=== PATIENT | female | born 1940 | race Hispanic/Latino ===

== ENCOUNTER 2017-09-17 14:21 | Emergency (ER) | payer MEDICARE, OTHER ==
[2017-09-17] MEDS ORDERED: Benzonatate 100 MG CAP ONE (14:46)
--- NOTE | 2017-09-17 15:51 | RAD ---
PA AND LATERAL VIEWS CHEST: HISTORY: Cough. FINDINGS: The heart size is normal. The lungs are expanded without focal areas of consolidation, pneumothorax, or pleural effusions. There are degenerative changes of the spine. IMPRESSION: No radiographic evidence of acute cardiopulmonary process. POS: [facility]
== END 2017-09-17 15:21 | disposition home or self-care (01) ==
LOC: SCSER 14:21
DX: J06.9 Acute upper respiratory infection, unspecified (principal); E03.9 Hypothyroidism, unspecified; K21.9 Gastro-esophageal reflux disease without esophagitis; I10 Essential (primary) hypertension; I34.1 Nonrheumatic mitral (valve) prolapse; F41.9 Anxiety disorder, unspecified; Z79.82 Long term (current) use of aspirin; Z79.899 Other long term (current) drug therapy
CPT/HCPCS: 71020

== ENCOUNTER 2018-05-04 08:47 | Outpatient (CLI) | payer MEDICARE, OTHER | END 2018-05-04 08:48 | disposition home or self-care (01) | LOC: BICRAD 08:47 | PROVIDERS: ATTEND Internal Medicine Rheumatology | DX: M25.552 Pain in left hip (principal); M16.12 Unilateral primary osteoarthritis, left hip ==

== ENCOUNTER 2018-07-26 10:21 | Outpatient (CLI) | payer MEDICARE, OTHER ==
--- NOTE | 2018-07-26 12:58 | MRI ---
MRI RIGHT SHOULDER: 07/26/2018 PROVIDED CLINICAL HISTORY: Right shoulder pain, status post injury. FINDINGS: Evaluation is limited by patient motion. There is full-thickness partial retracted tearing involving the anterior supraspinatus tendon, distal ly. There is retraction to about the level of the acromion. Partial-thickness under-surface tearing involving the distal fibers of infraspinatus cannot be excluded. Partial-thickness interstitial tea ring involving the cranial fibers of the subscapularis is suspected. The teres minor appears intact. There is medial subluxation of the longhead biceps tendon, suggesting bicipital sling injury. No f rank dislocation. There is a small glenohumeral joint effusion. The glenoid labrum and glenohumeral articular cartilag e are not optimally evaluated on the basis of this examination. Susceptibility artifact is seen about the shoulder, suggesting prior surgical change. Rotator cuff m uscular volume appears preserved. Acromioclavicular joint osteoarthrosis is demonstrated, with no si gnificant mass effect on the subjacent supraspinatus apparent. There is greater than physiologic subacromial subdeltoid bursal fluid. IMPRESSION: 1. Limited study due to patient motion. Full-thickness, partial-width tear of the supraspinatus ten don with retraction. 2. Partial-thickness tears of the infraspinatus and subscapularis are suspected. 3. Medial subluxation of the longhead biceps tendon may reflect bicipital sling injury. 4. Acromioclavicular joint osteoarthrosis. POS: [facility]
== END 2018-07-26 10:22 | disposition home or self-care (01) ==
LOC: TBSIIMAG 10:21
PROVIDERS: ATTEND Orthopaedic Surgery
DX: M25.511 Pain in right shoulder (principal); M75.121 Complete rotator cuff tear or rupture of right shoulder, not specified as traumatic; M19.011 Primary osteoarthritis, right shoulder; S43.001A Unspecified subluxation of right shoulder joint, initial encounter

== ENCOUNTER 2018-07-28 09:40 | Emergency (ER) | payer MEDICARE, OTHER ==
--- NOTE | 2018-07-28 11:28 | RAD ---
RIGHT SHOULDER THREE VIEWS: Indication: Pain, fall. FINDINGS: There is osteoarthritis without fracture or dislocation. IMPRESSION: No acute osseous abnormality right shoulder. POS: [facility]
[2018-07-28] MEDS ORDERED: HYDROcodone/Acetaminophen 5/325 mg Tablet ONE (11:51)
--- NOTE | 2018-07-28 12:19 | RAD ---
2 VIEWS RIGHT FOREARM: Date: 07/28/18 INDICATION: History of fall with right forearm pain. COMPARISON: None. FINDINGS/IMPRESSION: No acute fracture or subluxation is evident. Radiocapitellar alignment appears within normal limits. Soft tissues appear within normal limits. POS: [facility]
--- NOTE | 2018-07-28 12:19 | RAD ---
3 VIEWS RIGHT WRIST: Date: 07/28/18 INDICATION: Right wrist pain after fall. COMPARISON: None. FINDINGS: There is diffuse osteopenia. No definite acute fracture or subluxation is evident. Carpal alignment a ppears within normal limits. IMPRESSION: No acute osseous abnormality. POS: [facility]
== END 2018-07-28 12:50 | disposition home or self-care (01) ==
LOC: ERS 09:40
DX: S43.401A Unspecified sprain of right shoulder joint, initial encounter (principal); I34.1 Nonrheumatic mitral (valve) prolapse; F41.9 Anxiety disorder, unspecified; I10 Essential (primary) hypertension; K21.9 Gastro-esophageal reflux disease without esophagitis; E03.9 Hypothyroidism, unspecified; Z79.899 Other long term (current) drug therapy; W19.XXXA Unspecified fall, initial encounter

== ENCOUNTER 2018-08-21 14:14 | Outpatient (CLI) | payer MEDICARE, OTHER ==
[2018-08-21 15:21] LABS: #Eosinphils 0.3 thou/uL (0.0-0.7); #Lymphocytes 2.1 thou/uL (1.20-3.40); #Monocytes 0.6 thou/uL (0.11-0.59); #Neutrophils 2.9 thou/uL (1.40-6.50); %Basophils 0.7 % (0.0-1.0); %Eosinophils 4.5 % (0.0-10.0); %Lymphocytes 35.4 % (21.0-51.0); %Monocytes 9.6 % (0.0-10.0); %Neutrophils 49.8 % (42.0-75.0); Hemoglobin 11.9 g/dL (12.0-16.0); Mean Corpuscular HGB CONC 33.5 g/dL (32.0-36.0); Mean Corpuscular Volume 95.5 fL (78.0-98.0); Mean Platelet Volume 10.6 fL (7.4-10.4); Platelet Count 131 thou/uL (130-400); RBC Distribution Width 12.1 % (11.5-14.5); Red Blood Cell (RBC) Count 3.73 mill/uL (4.20-5.40); White Blood Cell (WBC) Count 5.8 thou/uL (4.8-10.8)
[2018-08-21 15:35] LABS: Anion Gap 10 mmol/L (10-20); BUN (Urea Nitrogen) 20 mg/dL (9.8-20.1); Calc. Creatinine Clearance 0 mL/min (70-130); Calcium 9.9 mg/dL (7.8-10.44); Carbon Dioxide 29 mmol/L (23-31); Chloride 108 mmol/L (98-107); Estimated GFR-MDRD 84; Glucose 119 mg/dL (83-110); Sodium 143 mmol/L (136-145)
--- NOTE | 2018-08-23 21:47 | EKG ---
Test Reason : Blood Pressure : / mmHG Vent. Rate : 065 BPM Atrial Rate : 065 BPM P-R Int : 164 ms QRS Dur : 084 ms QT Int : 408 ms P-R-T Axes : 044 046 044 degrees QTc Int : 424 ms Normal sinus rhythm Normal ECG When compared with ECG of 17-NOV-2015 13:47, No significant change was found Confirmed by Suzy LAKHANI ([id number]) on 08/23/2018 9:47:07 PM Referred By: PRERNA Confirmed By:Suzy LAKHANI
== END 2018-08-21 14:15 | disposition home or self-care (01) ==
LOC: LABBT 14:14
PROVIDERS: ATTEND Orthopaedic Surgery
DX: Z01.818 Encounter for other preprocedural examination (principal); M75.101 Unspecified rotator cuff tear or rupture of right shoulder, not specified as traumatic
CPT/HCPCS: 80048; 85025; 93005; 93010

== ENCOUNTER 2018-08-25 08:55 | Day surgery (SDC) | payer MEDICARE, OTHER ==
[2018-08-21 14:27] VITALS: BMI 26.9
[2018-08-25] MEDS ORDERED: CEFAZOLIN 2 GM/50 ML BAG ONE (09:46)
[2018-08-25] MEDS ORDERED: Midazolam HCl 2 mg/2 ml Vial ONE (10:08)
[2018-08-25] MEDS ORDERED: Fentanyl 100 MCG/2 ML VIAL ONE (10:09)
[2018-08-25] MEDS ORDERED: Promethazine HCl 25 MG/ML VIAL IM PRN (10:59)
[2018-08-25] MEDS ORDERED: Ropivacaine 0.2% 550 ML 550 ML NERVE BLCK SCH (10:59)
[2018-08-25] MEDS ORDERED: traMADol HCl 50 MG TAB PO PRN ×2 (10:59)
[2018-08-25] MEDS ORDERED: HYDROcodone/Acetaminophen 5/325 mg Tablet PO PRN ×2 (10:59)
[2018-08-25] MEDS ORDERED: Ondansetron PF 4 MG/2 ML Vial IVP PRN (10:59)
[2018-08-25] MEDS ORDERED: Zolpidem Tartrate 5 MG TAB PO PRN (10:59)
[2018-08-25] MEDS ORDERED: Fentanyl 100 MCG/2 ML VIAL IV PRN (11:00)
[2018-08-25] MEDS ORDERED: Ropivacaine 0.2% HCl/PF (40 MG/20 ML VIAL) ONE (12:52)
[2018-08-25] MEDS ORDERED: Ropivacaine 0.5% HCl/PF (150 MG/30 ML VIAL) ONE (12:52)
[2018-08-25] MEDS ORDERED: PROPOFOL 200 MG/20 ML VIAL ONE (13:02)
[2018-08-25] MEDS ORDERED: PHENYLEPHRINE-NS 100 MCG/ML 10 ML SYRINGE ONE (13:02)
[2018-08-25] MEDS ORDERED: Ondansetron PF 4 MG/2 ML Vial ONE (13:02)
[2018-08-25] MEDS ORDERED: ePHEDrine/0.9% NaCl/PF SYRINGE 50 mg/10 ml ONE (13:02)
[2018-08-25] MEDS ORDERED: Lidocaine 1% PF 5 ML VIAL ONE (13:02)
[2018-08-25] MEDS ORDERED: Glycopyrrolate 0.2 MG/ML 5 ML SYRINGE ONE (13:02)
--- NOTE | 2018-08-25 20:18 | OP ---
DATE OF PROCEDURE: 08/25/2018 PREOPERATIVE DIAGNOSIS: Rotator cuff tear and biceps dislocation, right shoulder. POSTOPERATIVE DIAGNOSIS: Rotator cuff tear and biceps dislocation, right shoulder with leading edge of subscapularis tear. METALLOGRAPHIC TECHNICIAN: James. BLOOD LOSS: Minimal. SPECIMEN: None. DRAINS: None. COMPLICATION: None. TITLE OF PROCEDURE: Right shoulder arthroscopic biceps tenotomy and arthroscopic rotator cuff repair with arthroscopic decompression. DESCRIPTION OF PROCEDURE: The patient was taken to the operating room, where general anesthesia was induced. The patient was placed in left lateral decubitus position. She received Ancef preoperatively. Right arm was placed in traction, prepped and draped in usual sterile fashion. The scope was placed in the glenohumeral joint. The biceps tendon was unstable. Due to the sling being ruptured, I tagged the biceps and transected superior glenoid tubercle. The biceps only settled down into the groove, so I did not feel tenodesis was required. She has very soft bone. I am concerned about possible iatrogenic fracture, so I left this as a tenotomy. Rotator cuff tear was mobilized and freshened. It was fairly a large tear. You could see sutures from a previous repair. It ruptured the same place. I freshened up the greater tuberosity with a teofilo. I performed an anterior and inferior acromioplasty with a teofilo. Three Corkscrew suture anchors were deployed, and sutures were passed through the rotator cuff and tied in a very good approximation to the bleeding cancellous bone. Shoulders were then drained. The portals were closed using nylon suture. Sterile dressings were applied. Job ID: [id number]
== END 2018-08-25 15:40 | disposition home or self-care (01) ==
LOC: SDC 08:55
PROVIDERS: ATTEND Orthopaedic Surgery
PROC: 0LM14ZZ Reattachment of Right Shoulder Tendon, Percutaneous Endoscopic Approach (ICD-10-PCS; principal; 2018-08-25)
PROC: 0RHJ44Z Insertion of Internal Fixation Device into Right Shoulder Joint, Percutaneous Endoscopic Approach (ICD-10-PCS; 2018-08-25)
PROC: 0RNJ4ZZ Release Right Shoulder Joint, Percutaneous Endoscopic Approach (ICD-10-PCS; 2018-08-25)
DX: M75.101 Unspecified rotator cuff tear or rupture of right shoulder, not specified as traumatic (principal); S43.084A Other dislocation of right shoulder joint, initial encounter; E03.9 Hypothyroidism, unspecified; K21.9 Gastro-esophageal reflux disease without esophagitis; M81.0 Age-related osteoporosis without current pathological fracture; Z79.82 Long term (current) use of aspirin; Z79.899 Other long term (current) drug therapy; Z88.5 Allergy status to narcotic agent; Z88.6 Allergy status to analgesic agent; Z88.8 Allergy status to other drugs, medicaments and biological substances; Z98.890 Other specified postprocedural states
CPT/HCPCS: 29826; 29827; 97139; A4306; G8984; G8985; G8986; J2001; J2250; J2405; J2704; J2795; J3010

== ENCOUNTER 2018-11-21 23:51 | Emergency (ER) | payer MEDICARE, OTHER ==
[2018-11-21] MEDS ORDERED: methylPREDNISolone Sod Succ/PF 125 MG/2 ML VIAL ONE (23:57)
[2018-11-21] MEDS ORDERED: Famotidine/PF 20 mg/2ml Vial ONE (23:57)
[2018-11-21] MEDS ORDERED: diphenhydrAMINE 50 MG/ML VIAL ONE (23:57)
[2018-11-22 00:17] LABS: #Basophils 0.1 thou/uL (0.0-0.2); #Eosinphils 0.3 thou/uL (0.0-0.7); #Lymphocytes 4.9 thou/uL (1.20-3.40); #Monocytes 0.9 thou/uL (0.11-0.59); #Neutrophils 4.2 thou/uL (1.40-6.50); %Basophils 0.6 % (0.0-1.0); %Eosinophils 2.6 % (0.0-10.0); %Lymphocytes 47.4 % (21.0-51.0); %Monocytes 8.7 % (0.0-10.0); %Neutrophils 40.7 % (42.0-75.0); Hemoglobin 14.1 g/dL (12.0-16.0); Mean Corpuscular HGB CONC 32.6 g/dL (32.0-36.0); Mean Corpuscular Hemoglobin 31.6 pg (27.0-31.0); Mean Corpuscular Volume 97.1 fL (78.0-98.0); Mean Platelet Volume 10.5 fL (7.4-10.4); Platelet Count 213 thou/uL (130-400); RBC Distribution Width 12.6 % (11.5-14.5); Red Blood Cell (RBC) Count 4.45 mill/uL (4.20-5.40); White Blood Cell (WBC) Count 10.4 thou/uL (4.8-10.8)
[2018-11-22 00:40] LABS: ALT (SGPT) 13 U/L (8-55); AST (SGOT) 19 U/L (5-34); Albumin 4.6 g/dL (3.4-4.8); Alkaline Phosphatase 99 U/L (40-150); Anion Gap 17 mmol/L (10-20); BUN (Urea Nitrogen) 22 mg/dL (9.8-20.1); Bilirubin, Total 0.4 mg/dL (0.2-1.2); CK (CPK) 65 U/L (29-168); Calc. Creatinine Clearance 0 mL/min (70-130); Carbon Dioxide 23 mmol/L (23-31); Chloride 103 mmol/L (98-107); Estimated GFR-MDRD 48; Globulin 2.4 g/dL (2.4-3.5); Glucose 141 mg/dL (83-110); Potassium 3.4 mmol/L (3.5-5.1); Sodium 140 mmol/L (136-145)
--- NOTE | 2018-11-22 06:38 | RAD ---
CHEST ONE VIEW: HISTORY: Pain. COMPARISON: 11/17/2015 FINDINGS: Slight elongation of the aorta. Normal cardiac silhouette. Pulmonary vessels and hilum are normal. Costophrenic angles are clear. No mass. No consolidation. No pneumothorax or acute osseous abnorm alities. IMPRESSION: No acute cardiopulmonary process. POS: [facility]
== END 2018-11-22 01:28 | disposition home or self-care (01) ==
LOC: ERS 23:51
DX: R06.02 Shortness of breath (principal); L27.0 Generalized skin eruption due to drugs and medicaments taken internally; T39.315A Adverse effect of propionic acid derivatives, initial encounter; E03.9 Hypothyroidism, unspecified; K21.9 Gastro-esophageal reflux disease without esophagitis; I10 Essential (primary) hypertension; F41.9 Anxiety disorder, unspecified
CPT/HCPCS: 71045; 80053; 82550; 83880; 84484; 85025; 93005; 96361; 96374; 96375; J1200; J2930; S0028

== ENCOUNTER 2019-01-14 11:20 | Emergency (ER) | payer MEDICARE, OTHER ==
--- NOTE | 2019-01-14 11:49 | RAD ---
Right forearm: 2 views Indications fall with injury. No evidence of fracture. IMPRESSION: No acute abnormality.
[2019-01-14] MEDS ORDERED: traMADol HCl 50 MG TAB ONE (12:12)
== END 2019-01-14 12:25 | disposition home or self-care (01) ==
LOC: ERS 11:20
DX: S50.11XA Contusion of right forearm, initial encounter (principal); E03.9 Hypothyroidism, unspecified; K21.9 Gastro-esophageal reflux disease without esophagitis; I10 Essential (primary) hypertension; F41.9 Anxiety disorder, unspecified; Z79.899 Other long term (current) drug therapy; W22.8XXA Striking against or struck by other objects, initial encounter

== ENCOUNTER 2019-02-23 14:43 | Outpatient (CLI) | payer MEDICARE, OTHER ==
--- NOTE | 2019-02-23 15:12 | MMO ---
Bilateral MAMMO Bilat Screen [facility]. CLINICAL HISTORY: Patient is 78 years old and is seen for screening. The patient has the following family history of breast cancer: maternal aunt. The patient has no personal history of cancer. VIEWS: The views performed were: bilateral craniocaudal with tomosynthesis and bilateral mediolateral oblique with tomosynthesis. FILMS COMPARED: The present examination has been compared to prior imaging studies performed at [facility] on 12/31/2013, 01/14/2015, 02/03/2016 and 02/03/2017. MAMMOGRAM FINDINGS: The breasts are heterogeneously dense, which could obscure a lesion on mammography. There are stable benign appearing calcifications seen in both breasts. There are also vascular calcifications. There are no suspicious masses, suspicious calcifications, or new areas of architectural distortion. IMPRESSION: THERE IS NO MAMMOGRAPHIC EVIDENCE OF MALIGNANCY. A ROUTINE FOLLOW-UP MAMMOGRAM IN 1 YEAR IS RECOMMENDED. THE RESULTS OF THIS EXAM WERE SENT TO THE PATIENT. ACR BI-RADS Category 2 - Benign finding MAMMOGRAPHY NOTE: 1. A negative mammogram report should not delay a biopsy if a dominant of clinically suspicious mass is present. 2. Approximately 10% to 15% of breast cancers are not detected by mammography. 3. Adenosis and dense breasts may obscure an underlying neoplasm.
== END 2019-02-23 14:44 | disposition home or self-care (01) ==
LOC: BICMAMMO 14:43
PROVIDERS: ATTEND Family Medicine
DX: Z12.31 Encounter for screening mammogram for malignant neoplasm of breast (principal); Z80.3 Family history of malignant neoplasm of breast
CPT/HCPCS: 77063; 77067

== ENCOUNTER 2019-03-07 14:25 | Outpatient (CLI) | payer MEDICARE, OTHER ==
--- NOTE | 2019-03-07 19:35 | MRI ---
MRI OF PELVIS PERFORMED WITHOUT CONTRAST ENHANCEMENT: 03/07/19 HISTORY: Left hip pain. The SI joints are symmetric in appearance. There are no signs of any pelvic insufficiency type fractu res. The visualized intrapelvic contents appear unremarkable. There are tendinosis changes of the hamstring tendon origins with a low grade partial tear at the rig ht hamstring tendon origin. There are mild arthritic changes of the right hip demonstrated. Small field of view images of the left hip were performed. There is a left hip joint effusion present . There is spur formation along the femoral head and neck junction. Some minimal edema change along t he lateral femoral head and neck junction and some subtle subchondral marrow edema change of the mary ann ral head which would suggest a small subchondral insufficiency fracture. There is considerable motion artifact on the sagittal views, but on the coronal images, there is degenerative type of tear involv ing the hip labrum. There is also evidence of adductor muscle strain with edema changes near the attachments of the addu ctor brevis longus and minimus muscles to the inferior pubic ramus. IMPRESSION: 1. Adductor muscle strain. 2. 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 There is a degenerated appearance to the hip labrum. There is some subtle subchondral marrow ed amando changes involving the superior weightbearing surface of the acetabulum which would suggest a smal l subchondral insufficiency fracture. There is a moderate hip joint effusion associated with these fi ndings. POS: [facility]
== END 2019-03-07 14:26 | disposition home or self-care (01) ==
LOC: SCSMRI 14:25
PROVIDERS: ATTEND Orthopaedic Surgery
DX: M25.551 Pain in right hip (principal); M16.11 Unilateral primary osteoarthritis, right hip; S76.219A Strain of adductor muscle, fascia and tendon of unspecified thigh, initial encounter
CPT/HCPCS: 72195

== ENCOUNTER 2019-08-03 08:54 | Outpatient (CLI) | payer MEDICARE, OTHER ==
--- NOTE | 2019-08-03 10:55 | MRI ---
MRI LUMBAR SPINE NONCONTRAST: HISTORY: Lumbar radiculopathy. COMPARISON: 04/16/2010. FINDINGS: Appropriate T1 marrow signal intensity of the lumbar vertebrae. Lumbar spine vertebral body height is maintained. No fracture. Type I Modic changes along the right aspect of the L3-L4 disc space. Mild rightward curvature lumbar spine centered at L3-L4. Appropriate signal intensity of the visualized paraspinal muscles. No retroperitoneal mass or hematom a. Bilateral parapelvic cysts are noted Conus medullaris terminates at the upper aspect of L1. T12-L1:Adequate disc hydration. No significant central canal stenosis or significant neural foraminal narrowing. L1-L2:Adequate disc hydration. No significant central canal stenosis. Left and right paracentral disc bulges, ligament flavum thickening and facet hypertrophy result in mild central canal stenosis. Narrowing of the left subarticular zone with partial displacement of the traversing left L2 nerve jair t. Mild right neural foraminal narrowing. Moderate left foraminal narrowing. L2-L3:Desiccation with moderate loss of disc space height. Broad-based disc bulge, ligament flavum th ickening and facet hypertrophy result in moderate central canal stenosis. Moderate bilateral neural foraminal narrowing. L3-L4:Desiccation with severe loss of disc space height. Broad-based disc bulge, ligament flavum thic kening and facet hypertrophy result in moderate to severe central canal stenosis. Severe narrowing of the left subarticular zone with obscuration the traversing left L4 nerve root. Right neural forame n is patent. Moderate left foraminal narrowing. L4-L5:Desiccation with moderate loss of disc space height. Broad-based disc bulge with a small superi or left subarticular disc protrusion. Mild narrowing of the left subarticular zone. There is contact upon the left traversing L5 nerve root without significant obscuration. Moderate to severe bi lateral foraminal narrowing. L5-S1:Desiccation without significant loss of disc space height. Broad-based disc bulge, ligament fla vum thickening and facet hypertrophy result in mild central canal stenosis. There is mild narrowing of the right subarticular zone. Disc material makes contact upon the traversing right S1 nerve root. No significant displacement or obscuration. Severe right foraminal narrowing. Mild left foraminal narrowing. IMPRESSION: Degenerative changes of the lumbar spine as described above. Transcribed Date/Time: 08/03/2019 11:11 AM
== END 2019-08-03 08:55 | disposition home or self-care (01) ==
LOC: BICMRI 08:54
PROVIDERS: ATTEND Anesthesiology Pain Medicine
DX: M47.26 Other spondylosis with radiculopathy, lumbar region (principal)
CPT/HCPCS: 72148

== ENCOUNTER 2020-07-03 09:41 | Outpatient (CLI) | payer MEDICARE, OTHER ==
--- NOTE | 2020-07-03 11:48 | MRI ---
Exam: MRI cervical spine without contrast HISTORY: Spinal stenosis. COMPARISON: 05/28/2010 FINDINGS: Appropriate T1 marrow signal intensity of the cervical vertebra. Cervical spine vertebral body heigh ts are maintained. No fracture. No significant STIR hyperintensity to suggest vertebral body edema or ligamentous injury. There are type I Modic changes at C6-C7. Visualized brain parenchyma, cervicomedullary junction, cervical cord and the upper thoracic cord hav e a normal size and signal intensity. Spondylolisthesis: C3-C4: 2.2 mm of anterolisthesis. C4-C5: 1.9 mm of anterolisthesis. C6-C7: 1.6 mm of retrolisthesis. C2-C3: Central disc herniation contacts the ventral cord. Mild central canal stenosis. No cord signal abnormality. Right neural foramen is patent. Moderate left neural foraminal narrowing predominantly due to facet hypertrophy. C3-C4: Central disc herniation deforms the cervical cord. Moderate central canal stenosis without cor d signal abnormality. Moderate right foraminal narrowing due to uncovertebral hypertrophy. Patent left neural foramen. C4-C5: Disc desiccation with moderate loss of disc space height. Broad-based disc osteophyte complex abuts the thecal sac. There is mass effect upon the midline cervical cord, without cord signal abnormality. Mild central canal stenosis. Patent bilateral neural foramina. C5-C6: Disc desiccation with moderate loss of disc space height. Broad-based disc osteophyte complex with moderate to severe central canal stenosis. No cord signal abnormality. Moderate bilateral neural foraminal narrowing. C6-C7: Broad-based disc osteophyte complex with central disc herniation. There is inferior and superi or disc migration. Moderate central canal stenosis. Moderate to severe right and moderate left neural foraminal narrowing due to uncovertebral hypertrophy. C7-T1: No significant posterior disc abnormality. No significant central canal stenosis. Mild bilater al neural foraminal narrowing. Additional findings: There does appear to be prominent disc osteophyte complexes/disc herniation at T 2-T3 and T3-T4. Evaluation is incomplete. Dedicated thoracic spine MRI recommended. IMPRESSION: Multilevel degenerative changes of the cervical spine as detailed above. Transcribed Date/Time: 07/03/2020 1:35 PM
== END 2020-07-03 09:42 | disposition home or self-care (01) ==
LOC: BICMRI 09:41
PROVIDERS: ATTEND Anesthesiology Pain Medicine
DX: M48.02 Spinal stenosis, cervical region (principal); M47.812 Spondylosis without myelopathy or radiculopathy, cervical region
CPT/HCPCS: 36415; 72141; 80053; 80061; 81001; 84439; 84443; 84481; 85025

== ENCOUNTER 2020-10-30 14:00 | Inpatient (IN) | payer MEDICARE, OTHER ==
[2020-11-11] MEDS ORDERED: Sodium Chloride 0.9% 100 ML ONE (06:02)
[2020-11-11] MEDS ORDERED: Tranexamic Acid 1,000 MG/10 ML VIAL ONE (06:02)
[2020-11-11] MEDS ORDERED: Vancomycin 1 GM/200 ML BAG ONE ×2 (06:03→07:04)
[2020-11-11] MEDS ORDERED: Lidocaine 4% Topical Sol 50 ML BOT ONE (06:11)
[2020-11-11] MEDS ORDERED: Albuterol Sulfate HFA (OR ONLY) ONE (06:11)
[2020-11-11] MEDS ORDERED: Fentanyl 100 MCG/2 ML VIAL ONE ×2 (06:11→11:03)
[2020-11-11 06:23] LABS: #Basophils 0.1 thou/uL (0.0-0.2); #Eosinphils 0.3 thou/uL (0.0-0.7); #Lymphocytes 1.4 thou/uL (1.20-3.40); #Monocytes 0.8 thou/uL (0.11-0.59); #Neutrophils 4.8 thou/uL (1.40-6.50); %Basophils 0.8 % (0.0-1.0); %Eosinophils 4.4 % (0.0-10.0); %Lymphocytes 19.4 % (21.0-51.0); %Monocytes 10.1 % (0.0-10.0); %Neutrophils 65.3 % (42.0-75.0); Mean Corpuscular Volume 93.9 fL (78.0-98.0); Mean Platelet Volume 10.2 fL (7.4-10.4); Platelet Count 151 thou/uL (130-400); RBC Distribution Width 11.4 % (11.5-14.5); Red Blood Cell (RBC) Count 3.21 mill/uL (4.20-5.40); White Blood Cell (WBC) Count 7.4 thou/uL (4.8-10.8)
[2020-11-11 06:32] LABS: Prothrombin Time 13.6 sec (12.0-14.7)
[2020-11-11 06:33] LABS: PTT 33.2 sec (22.9-36.1)
[2020-11-11 06:56] LABS: Anion Gap 13 mmol/L (10-20); BUN (Urea Nitrogen) 24 mg/dL (9.8-20.1); Calc. Creatinine Clearance 52 mL/min (70-130); Calcium 8.8 mg/dL (7.8-10.44); Carbon Dioxide 28 mmol/L (23-31); Chloride 104 mmol/L (98-107); Glucose 102 mg/dL (83-110); Potassium 3.4 mmol/L (3.5-5.1); Sodium 142 mmol/L (136-145)
[2020-11-11] MEDS ORDERED: Ropivacaine 0.2% HCl/PF 20 ML ONE (07:05)
[2020-11-11] MEDS ORDERED: Promethazine HCl 25 MG/ML VIAL IM PRN ×2 (07:05→07:30)
[2020-11-11] MEDS ORDERED: diphenhydrAMINE 25 MG CAP PO PRN ×2 (07:05→07:30)
[2020-11-11] MEDS ORDERED: HYDROcodone/Acetaminophen 10/325 mg Tablet PO PRN ×2 (07:05)
[2020-11-11] MEDS ORDERED: Fentanyl 100 MCG/2 ML VIAL SLOW IVP PRN (07:05)
[2020-11-11] MEDS ORDERED: Ondansetron PF 4 MG/2 ML Vial IVP PRN ×2 (07:05→07:30)
[2020-11-11] MEDS ORDERED: Zolpidem Tartrate 5 MG TAB PO PRN ×2 (07:05→07:30)
[2020-11-11] MEDS ORDERED: Bupivacaine 0.25% 10 ML VIAL EPIDURAL PRN (07:30)
[2020-11-11] MEDS ORDERED: Ketorolac Tromethamine 30 MG/ML VIAL IVP PRN (07:30)
[2020-11-11] MEDS ORDERED: Promethazine HCl 25 MG SUPP PR PRN (07:30)
[2020-11-11] MEDS ORDERED: Naloxone HCl 0.4 mg/ml Vial IVP PRN (07:30)
[2020-11-11] MEDS ORDERED: HYDROcodone/Acetaminophen 5/325 mg Tablet PO PRN ×2 (07:30)
[2020-11-11] MEDS ORDERED: traMADol HCl 50 MG TAB PO PRN ×2 (07:30)
[2020-11-11] MEDS ORDERED: Hydrocerin (Eucerin) Cream 120 gm Jar TOP PRN (07:30)
[2020-11-11] MEDS ORDERED: diphenhydrAMINE 50 MG/ML VIAL IVP PRN (07:30)
[2020-11-11] MEDS ORDERED: Naloxone HCl 0.4 mg/ml Vial IV PRN (07:30)
[2020-11-11] MEDS ORDERED: diphenhydrAMINE 50 MG/ML VIAL IM PRN (07:30)
[2020-11-11] MEDS ORDERED: Loratadine 10 MG TAB PO PRN (07:34)
[2020-11-11] MEDS ORDERED: Lisinopril 20 MG TAB PO SCH (09:00)
[2020-11-11] MEDS ORDERED: Oxybutynin 5 MG TAB PO SCH (09:00)
[2020-11-11] MEDS ORDERED: Non-Formulary Item 1 EACH (Omeprazole [Omeprazole] 40 MG Capsule.Dr) PO SCH (09:00)
[2020-11-11] MEDS ORDERED: Carvedilol 25 MG TAB PO SCH (09:00)
[2020-11-11] MEDS ORDERED: Hydrochlorothiazide 25 MG TAB PO SCH (09:00)
[2020-11-11] MEDS ORDERED: BUPRENORPHINE HCL 600 MCG TOP SCH (09:00)
--- NOTE | 2020-11-11 09:31 | RAD ---
EXAM: 2 views of the left hip HISTORY: Status post left hip arthroplasty COMPARISON: 05/28/2010 FINDINGS: 2 views of the left hip shows the patient is status post left hip arthroplasty without wero hardware lucency or fracture. Air in the soft tissues is from recent surgery. IMPRESSION: Status post left hip arthroplasty without evidence of complication.
--- NOTE | 2020-11-11 09:36 | OP ---
DATE OF PROCEDURE: 11/11/2020 TITLE OF PROCEDURE: Left total hip arthroplasty using a Paty Accolade II stem -4, 32 neck, 48 mm acetabulum with a 32 mm X3 liner. CARBON ACCOUNTANT: Astrid. BLOOD LOSS: 200. SPECIMEN: None. DRAINS: None. COMPLICATION: None. The assistant football coach/co-surgeon was present through the entire procedure and was responsible for providing exposure, tissue retraction and any necessary limb or tissue manipulation required to obtain necessary reduction or hardware placement. The assistant football coach/co-surgeon also provided bleeding control, tissue closure, and suturing in conjunction with the primary surgeon. DESCRIPTION OF PROCEDURE: After informed consent was obtained in the preoperative holding area, the patient was taken to the operative suite where general anesthesia was induced. The patient was then positioned in the lateral decubitus position. The hip was then prepped and draped in usual sterile fashion. The patient received preoperative antibiotics. Prior to incision, time-out was called and all members of the surgical team agreed upon site, surgeon, and patient. After this, a longitudinal incision was made directly over the trochanter, noted by palpation extending 2 fingerbreadths above and below the trochanter. The deeper subcutaneous layer was undermined with Bovie electrocautery. The iliotibial band was encountered and incised sharply and the plane below this was developed bluntly. A Charnley retractor was placed to hold this opened. The lateral aspect of the trochanter and the abductor muscles were encountered and then reflected anteriorly off the trochanter using Bovie electrocautery. Once this was completed, the anterior capsule was then encountered and identified and copious capsulotomy was carried out, exposing the femoral neck and head. Dislocation maneuver was then performed and an in situ provisional neck cut was then made using the oscillating saw. Attention was then turned to acetabular preparation and sequential reaming was carried out up to the appropriate diameter. A trial was then malleted into place with good firm resistance and no pullout. The permanent acetabular shell was then malleted squarely into place, as was the appropriate liner. Once completed, the wound was copiously irrigated and attention was then turned to femoral preparation. Flexion and external rotation were performed of the exposed thigh and femoral elevators were then placed at the proximal aspect of the wound. Canal finder was used to establish the length of the canal and sequential reaming was carried out, followed by broaching. Once the appropriate stability was established with the trial broaches with flexion, extension and rotational stability, we did trial with neutral and 2 mm offset incremental necks. Once the appropriate size was decided upon, with good stability noted with flexion, extension, internal and external rotation and shuck being negative, we removed the femoral trial broach and malletted into place the permanent prosthesis with good firm fit, which was also stable to rotation. Again, the hip felt very stable to flexion, extension, internal and external rotation. Leg lengths appeared near anatomic clinically and we were quite happy with prosthesis placement. Copious irrigation was then carried out through the entirety of the wound. Primary closure of the abductors was accomplished with interrupted #2 Vicryl [id number] stitches and the IT band was then closed with interrupted #2 Vicryl, oversewn with a #2 running barbed Quill stitch. Subcutaneous fascia was closed with running barbed Quill stitch and a subcuticular Monocryl barbed Quill stitch was used for skin closure and augmented with skin cement. A sterile dressing was applied. The procedure was terminated without any complication. All counts were correct. The patient was awakened in the operative suite and taken to the recovery room in stable condition. Job ID: [id number]
[2020-11-11] MEDS ORDERED: ePHEDrine 50 MG/ML VIAL ONE (09:57)
[2020-11-11] MEDS ORDERED: Ketorolac Tromethamine 30 MG/ML VIAL ONE (09:57)
[2020-11-11] MEDS ORDERED: Ondansetron PF 4 MG/2 ML Vial ONE (09:57)
[2020-11-11] MEDS ORDERED: Glycopyrrolate 0.2 MG/ML 5 ML SYRINGE ONE (09:57)
[2020-11-11] MEDS ORDERED: Rocuronium Bromide 10 MG/ML (10ML VIAL) ONE (09:57)
[2020-11-11] MEDS ORDERED: Dexamethasone 20 MG/5 ML VIAL ONE (09:57)
[2020-11-11] MEDS ORDERED: Lidocaine 1% PF 5 ML VIAL ONE (09:57)
[2020-11-11] MEDS ORDERED: Lidocaine 1.5% w/Epi 1:200K 30 ML VIAL (Epid Use) ONE (09:57)
[2020-11-11] MEDS ORDERED: PROPOFOL 200 MG/20 ML VIAL ONE (09:57)
[2020-11-11] MEDS ORDERED: PHENYLEPHRINE-NS 100 MCG/ML 10 ML SYRINGE ONE (09:57)
[2020-11-11] MEDS: Sodium Chloride 0.9% 1,000 ML IV SCH ×2 (15:47→17:56)
[2020-11-11] MEDS: Aspirin 81 mg Enteric Coated Tablet PO SCH ×2 (15:48→19:58)
[2020-11-11] MEDS: Cholecalciferol 1,000 UNITS (25 MCG) TAB PO SCH (15:48)
[2020-11-11] MEDS: DULoxetine 60 MG CAP PO SCH (15:48)
[2020-11-11] MEDS: Ferrous Gluconate 324 MG TAB PO SCH ×2 (15:49→19:58)
[2020-11-11] MEDS: Multivitamin W/ Minerals 1 TAB PO SCH (15:50)
[2020-11-11] MEDS: Senokot S 8.6-50 MG TAB PO SCH ×2 (15:50→19:58)
[2020-11-11] MEDS: CEFAZOLIN 2 GM in Premix Bag 1 BAG IVPB SCH ×2 (16:03→21:58)
[2020-11-11 16:54] VITALS: BMI 22.6
[2020-11-11] MEDS: Carvedilol 25 MG TAB PO SCH (19:58)
[2020-11-11] MEDS: Acetaminophen 325 MG TAB PO PRN (19:58)
[2020-11-11] MEDS: Lisinopril 20 MG TAB PO SCH (19:59)
[2020-11-11] MEDS: Oxybutynin 5 MG TAB PO SCH (19:59)
[2020-11-12] MEDS: Fentanyl 5 mcg/Bup 0.075% Cadd 100 ML EPIDURAL SCH ×2 (00:44→16:00)
[2020-11-12] MEDS: Sodium Chloride 0.9% 1,000 ML IV SCH ×2 (04:02→14:03)
[2020-11-12] MEDS: Levothyroxine Sodium 100 MCG TAB PO SCH (05:35)
[2020-11-12 07:33] LABS: Hemoglobin 8.3 g/dL (12.0-16.0); Mean Corpuscular Hemoglobin 31.9 pg (27.0-31.0); Mean Corpuscular Volume 93.9 fL (78.0-98.0); RBC Distribution Width 11.6 % (11.5-14.5); Red Blood Cell (RBC) Count 2.59 mill/uL (4.20-5.40); White Blood Cell (WBC) Count 8.4 thou/uL (4.8-10.8)
[2020-11-12] MEDS: Ferrous Gluconate 324 MG TAB PO SCH ×2 (08:23→19:53)
[2020-11-12] MEDS: Senokot S 8.6-50 MG TAB PO SCH ×2 (08:23→19:53)
[2020-11-12] MEDS: Oxybutynin 5 MG TAB PO SCH ×2 (08:24→19:52)
[2020-11-12] MEDS: Aspirin 81 mg Enteric Coated Tablet PO SCH ×2 (08:24→19:53)
[2020-11-12] MEDS: DULoxetine 60 MG CAP PO SCH (08:24)
[2020-11-12] MEDS: Carvedilol 25 MG TAB PO SCH ×2 (08:24→19:52)
[2020-11-12] MEDS: Cholecalciferol 1,000 UNITS (25 MCG) TAB PO SCH (08:24)
[2020-11-12] MEDS: Multivitamin W/ Minerals 1 TAB PO SCH (08:24)
[2020-11-12] MEDS: Hydrochlorothiazide 25 MG TAB PO SCH (12:07)
[2020-11-12] MEDS: Acetaminophen 325 MG TAB PO PRN (15:59)
[2020-11-12] MEDS: Lisinopril 20 MG TAB PO SCH (19:52)
[2020-11-13] MEDS: Sodium Chloride 0.9% 1,000 ML IV SCH ×2 (00:38→09:32)
[2020-11-13] MEDS: Levothyroxine Sodium 100 MCG TAB PO SCH (05:38)
[2020-11-13 06:34] LABS: Mean Corpuscular HGB CONC 33.3 g/dL (32.0-36.0); Mean Corpuscular Hemoglobin 31.2 pg (27.0-31.0); Mean Corpuscular Volume 93.8 fL (78.0-98.0); Mean Platelet Volume 11.1 fL (7.4-10.4); Platelet Count 92 thou/uL (130-400); RBC Distribution Width 11.6 % (11.5-14.5); Red Blood Cell (RBC) Count 2.55 mill/uL (4.20-5.40)
[2020-11-13 08:36] LABS: #Lymphocytes 1.1 thou/uL (1.20-3.40); #Monocytes 1.1 thou/uL (0.11-0.59); #Neutrophils 8.3 thou/uL (1.40-6.50); %Basophils 0.3 % (0.0-1.0); %Eosinophils 0.3 % (0.0-10.0); %Lymphocytes 10.2 % (21.0-51.0); %Monocytes 10.8 % (0.0-10.0); %Neutrophils 78.4 % (42.0-75.0); Hemoglobin 7.8 g/dL (12.0-16.0); Mean Corpuscular HGB CONC 32.3 g/dL (32.0-36.0); Mean Corpuscular Hemoglobin 30.6 pg (27.0-31.0); Mean Corpuscular Volume 94.7 fL (78.0-98.0); Platelet Count 126 thou/uL (130-400); RBC Distribution Width 11.5 % (11.5-14.5); Red Blood Cell (RBC) Count 2.55 mill/uL (4.20-5.40); White Blood Cell (WBC) Count 10.5 thou/uL (4.8-10.8)
[2020-11-13] MEDS: Multivitamin W/ Minerals 1 TAB PO SCH (08:47)
[2020-11-13] MEDS: Ferrous Gluconate 324 MG TAB PO SCH (08:47)
[2020-11-13] MEDS: DULoxetine 60 MG CAP PO SCH (08:47)
[2020-11-13] MEDS: Cholecalciferol 1,000 UNITS (25 MCG) TAB PO SCH (08:47)
[2020-11-13] MEDS: Aspirin 81 mg Enteric Coated Tablet PO SCH (08:47)
[2020-11-13] MEDS: Senokot S 8.6-50 MG TAB PO SCH (08:47)
[2020-11-13] MEDS: Carvedilol 25 MG TAB PO SCH (08:48)
[2020-11-13] MEDS: Oxybutynin 5 MG TAB PO SCH (08:48)
[2020-11-13 11:27] VITALS: BP 110/62; TEMP 98.9
[2020-11-13] MEDS: Hydrochlorothiazide 25 MG TAB PO SCH (12:11)
== END 2020-11-13 14:50 | disposition home or self-care (01) | DRG 470 ==
LOC: SURG A 11-11 05:33
PROVIDERS: ADMIT Orthopaedic Surgery; ATTEND Orthopaedic Surgery
PROC: 0SRB0J9 Replacement of Left Hip Joint with Synthetic Substitute, Cemented, Open Approach (ICD-10-PCS; principal; 2020-11-11)
DX: M16.12 Unilateral primary osteoarthritis, left hip (principal); Z20.822 Contact with and (suspected) exposure to COVID-19; E03.9 Hypothyroidism, unspecified; Z88.5 Allergy status to narcotic agent; Z90.710 Acquired absence of both cervix and uterus; Z79.890 Hormone replacement therapy; Z79.899 Other long term (current) drug therapy
CPT/HCPCS: 36415; 80048; 85025; 85027; 85610; 85730; J0690; J1100; J1885; J2001; J2405; J2704; J2795; J3010; J3370; J3490

== ENCOUNTER 2020-12-27 16:07 | Emergency (ER) | payer MEDICARE, OTHER ==
[2020-12-27 17:24] LABS: Hemoglobin 11.2 g/dL (12.0-16.0); Mean Corpuscular Hemoglobin 29.5 pg (27.0-31.0); Mean Corpuscular Volume 92.4 fL (78.0-98.0); RBC Distribution Width 12.8 % (11.5-14.5); Red Blood Cell (RBC) Count 3.81 mill/uL (4.20-5.40); White Blood Cell (WBC) Count 7.9 thou/uL (4.8-10.8)
[2020-12-27 17:43] LABS: Anion Gap 14 mmol/L (10-20); BUN (Urea Nitrogen) 27 mg/dL (9.8-20.1); Calc. Creatinine Clearance 0 mL/min (70-130); Calcium 9.6 mg/dL (7.8-10.44); Carbon Dioxide 29 mmol/L (23-31); Chloride 103 mmol/L (98-107); Glucose 103 mg/dL (83-110); Potassium 4.4 mmol/L (3.5-5.1); Sodium 142 mmol/L (136-145)
[2020-12-27 17:46] LABS: Band 11 % (5-11); Eosinophils 5 % (0-10); Lymphocytes 15 % (21-51); MDiff Complete? YES; Mean Platelet Volume 11.1 fL (7.4-10.4); Monocytes 8 % (0-10); Neutrophil 52 % (42-75); Platelet Clumps MODERATE; Platelet Morphology Comment PLT clumps seen-ADEQ; RBC Morphology Normal; Reactive Lymphocytes 9 % (0-10)
== END 2020-12-27 18:40 | disposition home or self-care (01) ==
LOC: ERS 16:07
DX: S20.312A Abrasion of left front wall of thorax, initial encounter (principal); M25.531 Pain in right wrist; R51.9 Headache, unspecified; D64.9 Anemia, unspecified; E03.9 Hypothyroidism, unspecified; K21.9 Gastro-esophageal reflux disease without esophagitis; I10 Essential (primary) hypertension; Z79.899 Other long term (current) drug therapy; W01.0XXA Fall on same level from slipping, tripping and stumbling without subsequent striking against object, initial encounter
CPT/HCPCS: 36415; 70450; 72125; 80048; 84484; 85025; 93005

== ENCOUNTER 2020-12-31 14:02 | Outpatient (CLI) | payer MEDICARE, OTHER | END 2020-12-31 14:03 | disposition home or self-care (01) | LOC: BICRAD 14:02 | PROVIDERS: ATTEND Family Medicine | DX: M25.552 Pain in left hip (principal) ==

== ENCOUNTER 2021-01-01 13:45 | Outpatient (CLI) | payer MEDICARE, OTHER | END 2021-01-01 13:46 | disposition home or self-care (01) | LOC: BICMAMMO 13:45 | PROVIDERS: ATTEND Internal Medicine Rheumatology | DX: Z12.31 Encounter for screening mammogram for malignant neoplasm of breast (principal); M81.0 Age-related osteoporosis without current pathological fracture; M85.89 Other specified disorders of bone density and structure, multiple sites; Z80.3 Family history of malignant neoplasm of breast | CPT/HCPCS: 77063; 77067; 77080 ==

== ENCOUNTER 2021-01-06 18:24 | Emergency (ER) | payer MEDICARE, OTHER | END 2021-01-06 19:25 | disposition left against medical advice (07) | LOC: ERS 18:24 | DX: Z53.21 Procedure and treatment not carried out due to patient leaving prior to being seen by health care provider (principal) ==

== ENCOUNTER 2021-06-04 14:51 | Emergency (ER) | payer MEDICARE, OTHER ==
[2021-06-04 15:39] LABS: #Eosinphils 0.2 thou/uL (0.0-0.7); #Lymphocytes 1.6 thou/uL (1.20-3.40); #Monocytes 0.5 thou/uL (0.11-0.59); #Neutrophils 3.1 thou/uL (1.40-6.50); %Basophils 0.7 % (0.0-1.0); %Eosinophils 3.2 % (0.0-10.0); %Lymphocytes 29.1 % (21.0-51.0); %Monocytes 9.7 % (0.0-10.0); %Neutrophils 57.3 % (42.0-75.0); Hemoglobin 10.9 g/dL (12.0-16.0); Mean Corpuscular HGB CONC 34.5 g/dL (32.0-36.0); Mean Corpuscular Hemoglobin 33.3 pg (27.0-31.0); Mean Corpuscular Volume 96.6 fL (78.0-98.0); RBC Distribution Width 12.4 % (11.5-14.5); Red Blood Cell (RBC) Count 3.28 mill/uL (4.20-5.40); White Blood Cell (WBC) Count 5.4 thou/uL (4.8-10.8)
[2021-06-04 15:40] LABS: Platelet Count 141 thou/uL (130-400)
[2021-06-04 15:54] LABS: ALT (SGPT) 8 U/L (8-55); AST (SGOT) 17 U/L (5-34); Alkaline Phosphatase 55 U/L (40-110); Anion Gap 10 mmol/L (10-20); BUN (Urea Nitrogen) 25 mg/dL (9.8-20.1); Bilirubin, Total 0.4 mg/dL (0.2-1.2); Calc. Creatinine Clearance 0 mL/min (70-130); Calcium 9.2 mg/dL (7.8-10.44); Carbon Dioxide 27 mmol/L (23-31); Chloride 107 mmol/L (98-107); Globulin 2.2 g/dL (2.4-3.5); Glucose 95 mg/dL (83-110); Lipase 24 U/L (8-78); Protein, Total 6.2 g/dL (5.8-8.1); Sodium 140 mmol/L (136-145)
[2021-06-04 17:43] LABS: PTT 34.4 sec (22.9-36.1); Prothrombin Time 12.9 sec (12.0-14.7)
[2021-06-04] MEDS ORDERED: Labetalol HCl 100 MG/20 ML VIAL ONE (17:43)
== END 2021-06-04 18:22 | disposition home or self-care (01) ==
LOC: ERS 14:51
DX: I62.01 Nontraumatic acute subdural hemorrhage (principal); I62.03 Nontraumatic chronic subdural hemorrhage; I10 Essential (primary) hypertension; Z79.899 Other long term (current) drug therapy
CPT/HCPCS: 36415; 70450; 80053; 83690; 84484; 85025; 85610; 85730; 93005; 96374

== ENCOUNTER 2021-06-19 12:47 | Emergency (ER) | payer MEDICARE, OTHER | END 2021-06-19 17:07 | disposition home or self-care (01) | LOC: ERS 12:47 | DX: I62.01 Nontraumatic acute subdural hemorrhage (principal); I10 Essential (primary) hypertension; M81.0 Age-related osteoporosis without current pathological fracture; Z79.899 Other long term (current) drug therapy | CPT/HCPCS: 70450 ==

== ENCOUNTER 2021-09-17 14:42 | Emergency (ER) | payer MEDICARE, OTHER | END 2021-09-17 17:47 | disposition home or self-care (01) | LOC: ERS 14:42 | DX: M54.50 Low back pain, unspecified (principal); I10 Essential (primary) hypertension ==

== ENCOUNTER 2021-10-01 08:27 | Outpatient (CLI) | payer MEDICARE, OTHER | END 2021-10-01 08:28 | disposition home or self-care (01) | LOC: BICCT 08:27 | PROVIDERS: ATTEND Neurological Surgery | DX: I62.00 Nontraumatic subdural hemorrhage, unspecified (principal) | CPT/HCPCS: 70450 ==

== ENCOUNTER 2022-01-07 13:06 | Outpatient (CLI) | payer MEDICARE, OTHER | END 2022-01-07 13:07 | disposition home or self-care (01) | LOC: BICMAMMO 13:06 | PROVIDERS: ATTEND Family Medicine | DX: Z12.31 Encounter for screening mammogram for malignant neoplasm of breast (principal); Z80.3 Family history of malignant neoplasm of breast | CPT/HCPCS: 77063; 77067 ==

== ENCOUNTER 2022-08-18 10:10 | Emergency (ER) | payer MEDICARE, OTHER ==
[2022-08-18 10:38] LABS: #Eosinphils 0.2 thou/uL (0.0-0.7); #Lymphocytes 1.3 thou/uL (1.20-3.40); #Monocytes 0.5 thou/uL (0.11-0.59); #Neutrophils 3.4 thou/uL (1.40-6.50); %Basophils 0.4 % (0.0-1.0); %Eosinophils 3.2 % (0.0-10.0); %Lymphocytes 24.8 % (21.0-51.0); %Monocytes 8.4 % (0.0-10.0); %Neutrophils 63.2 % (42.0-75.0); Hemoglobin 11.8 g/dL (12.0-16.0); Mean Corpuscular HGB CONC 32.5 g/dL (32.0-36.0); Mean Corpuscular Hemoglobin 33.3 pg (27.0-31.0); Mean Platelet Volume 9.8 fL (7.4-10.4); Platelet Count 128 10x3/uL (130-400); Red Blood Cell (RBC) Count 3.54 mill/uL (4.20-5.40); White Blood Cell (WBC) Count 5.3 10x3/uL (4.8-10.8)
[2022-08-18 10:56] LABS: ALT (SGPT) 14 U/L (8-55); AST (SGOT) 19 U/L (5-34); Albumin 4.1 g/dL (3.4-4.8); Alkaline Phosphatase 50 U/L (40-110); Anion Gap 12 mmol/L (10-20); BUN (Urea Nitrogen) 21 mg/dL (9.8-20.1); Bilirubin, Total 0.8 mg/dL (0.2-1.2); Calc. Creatinine Clearance 0 mL/min (70-130); Calcium 9.4 mg/dL (7.8-10.44); Carbon Dioxide 27 mmol/L (23-31); Chloride 103 mmol/L (98-107); Estimated GFR 77; Globulin 2.4 g/dL (2.4-3.5); Glucose 89 mg/dL (83-110); Lipase 21 U/L (8-78); Potassium 4.5 mmol/L (3.5-5.1); Protein, Total 6.5 g/dL (5.8-8.1); Sodium 137 mmol/L (136-145)
== END 2022-08-18 13:21 | disposition home or self-care (01) ==
LOC: ERS 10:10
DX: R07.89 Other chest pain (principal); M25.512 Pain in left shoulder; I10 Essential (primary) hypertension
CPT/HCPCS: 36415; 71045; 80053; 83690; 83880; 84484; 85025; 93005

== ENCOUNTER 2023-03-01 08:50 | Outpatient (CLI) | payer MEDICARE, OTHER | END 2023-03-01 08:51 | disposition home or self-care (01) | LOC: BICMAMMO 08:50 | PROVIDERS: ATTEND Internal Medicine Rheumatology | DX: M81.0 Age-related osteoporosis without current pathological fracture (principal); M85.80 Other specified disorders of bone density and structure, unspecified site | CPT/HCPCS: 77080 ==

== ENCOUNTER 2023-04-12 10:12 | Outpatient (CLI) | payer MEDICARE, OTHER ==
[2023-04-12 12:46] LABS: Anion Gap 15 mmol/L (10-20); BUN (Urea Nitrogen) 20 mg/dL (9.8-20.1); Calc. Creatinine Clearance 0 mL/min (70-130); Calcium 9.4 mg/dL (7.8-10.44); Carbon Dioxide 24 mmol/L (23-31); Chloride 107 mmol/L (98-107); Estimated GFR 75; Glucose 76 mg/dL (83-110); Potassium 4.4 mmol/L (3.5-5.1); Sodium 142 mmol/L (136-145)
[2023-04-12 13:24] LABS: #Eosinphils 0.2 10x3/uL (0.0-0.5); #Monocytes 0.5 10x3/uL (0.0-1.1); #Neutrophils 2.7 10x3/uL (1.5-8.4); %Basophils 0.6 % (0.0-2.0); %Eosinophils 3.5 % (0.0-6.0); %Lymphocytes 30.2 % (18.0-47.0); %Monocytes 10.8 % (0.0-10.0); %Neutrophils 54.5 % (40.0-75.0); Hemoglobin 11.3 g/dL (12.0-15.5); Mean Corpuscular Hemoglobin 31.3 pg (27.0-33.0); Mean Corpuscular Volume 97.8 fl (81.6-98.3); RBC Distribution Width 13.5 % (11.5-14.5); Red Blood Cell (RBC) Count 3.61 10x6/uL (3.90-5.03); White Blood Cell (WBC) Count 4.9 10x3/uL (3.5-10.5)
[2023-04-12 14:06] LABS: Giant Platelets SLIGHT HPF (0-5); Large Platelets SLIGHT (None Seen); Platelet Adequacy Comment PLT clumps seen-ADEQ; Platelet Clumps MARKED
[2023-04-12 14:09] LABS: RBC Morph Comment Within Normal Limits
== END 2023-04-12 10:13 | disposition home or self-care (01) ==
LOC: LABBT 10:12
PROVIDERS: ATTEND Orthopaedic Surgery
DX: Z01.818 Encounter for other preprocedural examination (principal); M19.011 Primary osteoarthritis, right shoulder
CPT/HCPCS: 71046; 80048; 85025; 93005; 93010

== ENCOUNTER 2023-04-14 07:41 | Observation (INO) | payer MEDICARE, OTHER ==
[2023-04-14] MEDS ORDERED: Tranexamic Acid 1,000 MG/10 ML VIAL ONE (08:31)
[2023-04-14] MEDS ORDERED: Vancomycin 1 GM/200 ML (FROZEN) BAG ONE (08:31)
[2023-04-14] MEDS ORDERED: Sodium Chloride 0.9% 100 ML ONE ×2 (08:31→09:19)
[2023-04-14] MEDS ORDERED: fentaNYL 50 mcg/mL 1 mL Vial ONE ×2 (08:46→09:39)
[2023-04-14] MEDS ORDERED: Midazolam HCl 2 mg/2 ml Vial ONE (08:46)
[2023-04-14] MEDS ORDERED: Ropivacaine 0.5% HCl/PF (150 MG/30 ML VIAL) ONE (08:46)
[2023-04-14] MEDS ORDERED: Ropivacaine 0.2% HCl/PF 20 ML ONE (08:46)
[2023-04-14] MEDS ORDERED: Acetaminophen 500 MG TAB ONE (08:58)
[2023-04-14] MEDS ORDERED: CEFAZOLIN 2 GM VIAL ONE (09:19)
[2023-04-14] MEDS ORDERED: fentaNYL 50 mcg/mL 1 mL Vial SLOW IVP PRN (09:24)
[2023-04-14] MEDS ORDERED: HYDROcodone/Acetaminophen 7.5/325 mg Tablet PO PRN ×2 (09:27)
[2023-04-14] MEDS ORDERED: Ondansetron PF 4 MG/2 ML Vial IVP PRN (09:30)
[2023-04-14] MEDS ORDERED: Promethazine HCl 25 MG/ML VIAL IM PRN ×2 (09:30→10:54)
[2023-04-14] MEDS ORDERED: Zolpidem Tartrate 5 MG TAB PO PRN (09:30)
[2023-04-14] MEDS ORDERED: Ropivacaine 0.2% 550 ML 550 ML NERVE BLCK SCH (09:30)
[2023-04-14] MEDS ORDERED: Loratadine 10 MG TAB PO PRN (09:48)
[2023-04-14] MEDS ORDERED: Ondansetron PF 4 MG/2 ML Vial ONE (10:05)
[2023-04-14] MEDS ORDERED: Dexamethasone 20 MG/5 ML VIAL ONE (10:05)
[2023-04-14] MEDS ORDERED: Rocuronium Bromide 10 MG/ML (10ML VIAL) ONE (10:05)
[2023-04-14] MEDS ORDERED: PROPOFOL 200 MG/20 ML VIAL ONE (10:05)
[2023-04-14] MEDS ORDERED: Phenylephrine 10 MG/ML VIAL ONE (10:12)
[2023-04-14] MEDS ORDERED: Ondansetron HCl/PF 4 MG/2 ML Vial IVP PRN (10:54)
[2023-04-14] MEDS ORDERED: SUGAMMADEX SODIUM 200 MG/2 ML VIAL ONE (11:17)
[2023-04-14] MEDS ORDERED: Ketorolac Tromethamine 30 MG/ML VIAL ONE (12:07)
[2023-04-14] MEDS: Ketorolac Tromethamine 30 MG/ML VIAL IVP SCH ×2 (12:08→17:15)
[2023-04-14] MEDS ORDERED: hydrALAZINE 20 MG/ML VIAL ONE (12:47)
[2023-04-14] MEDS: CEFAZOLIN 2 GM in Sodium Chloride 0.9% 100 ML IVPB SCH (17:13)
[2023-04-14] MEDS: Dextrose 5 %-0.45 % NaCl 1,000 ML IV SCH (17:17)
[2023-04-14] MEDS ORDERED: Buprenorphine Hcl [Belbuca] 600 MCG Film TOP SCH (21:00)
[2023-04-14] MEDS ORDERED: Non-Formulary Item 1 EACH (Omeprazole [Omeprazole] 40 MG Capsule.Dr) PO SCH (21:00)
[2023-04-14] MEDS ORDERED: Oxybutynin 5 MG TAB PO SCH (21:00)
[2023-04-14] MEDS: Carvedilol 25 MG TAB PO SCH (21:08)
[2023-04-15] MEDS: CEFAZOLIN 2 GM in Sodium Chloride 0.9% 100 ML IVPB SCH (00:08)
[2023-04-15] MEDS: Ketorolac Tromethamine 30 MG/ML VIAL IVP SCH ×3 (00:08→12:42)
[2023-04-15] MEDS: Dextrose 5 %-0.45 % NaCl 1,000 ML IV SCH (05:02)
[2023-04-15] MEDS ORDERED: Levothyroxine Sodium 100 MCG TAB PO SCH (06:00)
[2023-04-15] MEDS ORDERED: Lisinopril 20 MG TAB PO SCH (09:00)
[2023-04-15] MEDS ORDERED: Hydrochlorothiazide 25 MG TAB PO SCH (09:00)
[2023-04-15] MEDS ORDERED: DULoxetine 60 MG CAP PO SCH (09:00)
[2023-04-15] MEDS ORDERED: Aspirin 81 mg Enteric Coated Tablet PO SCH (09:00)
[2023-04-15] MEDS ORDERED: Cholecalciferol 1,000 UNITS (25 MCG) TAB PO SCH (09:00)
[2023-04-15] MEDS: Carvedilol 25 MG TAB PO SCH (09:10)
[2023-04-15 13:02] VITALS: BMI 246381.7
[2023-04-15 13:40] VITALS: BP 132/58; TEMP 97.9
== END 2023-04-15 14:57 | disposition home or self-care (01) ==
LOC: SDC 07:41 → SJJU 14:40
PROVIDERS: ADMIT Orthopaedic Surgery; ATTEND Orthopaedic Surgery
PROC: 0RPJ0JZ Removal of Synthetic Substitute from Right Shoulder Joint, Open Approach (ICD-10-PCS; principal; 2023-04-14)
PROC: 0RRJ0JZ Replacement of Right Shoulder Joint with Synthetic Substitute, Open Approach (ICD-10-PCS; 2023-04-14)
PROC: 0RPJ0JZ Removal of Synthetic Substitute from Right Shoulder Joint, Open Approach (ICD-10-PCS; 2023-04-14)
DX: M19.011 Primary osteoarthritis, right shoulder (principal); M75.102 Unspecified rotator cuff tear or rupture of left shoulder, not specified as traumatic; I10 Essential (primary) hypertension; E78.00 Pure hypercholesterolemia, unspecified; M81.0 Age-related osteoporosis without current pathological fracture; Z90.89 Acquired absence of other organs; Z90.49 Acquired absence of other specified parts of digestive tract; Z88.5 Allergy status to narcotic agent; Z88.6 Allergy status to analgesic agent; Z88.8 Allergy status to other drugs, medicaments and biological substances
CPT/HCPCS: 23430; 23472; 97110; 97116 ×2; 97530; 97535; A4306; C1713 ×5; C1776 ×2; J0360; J3010; J3370; J1100; J1885; J2250; J2370; J2405; J2704; J2795; J3490; J7042

== ENCOUNTER 2023-07-20 13:52 | Outpatient (CLI) | payer MEDICARE, OTHER | END 2023-07-20 13:53 | disposition home or self-care (01) | LOC: SCSRAD 13:52 | PROVIDERS: ATTEND Family Medicine | DX: R50.9 Fever, unspecified (principal) | CPT/HCPCS: 71046 ==

== ENCOUNTER 2023-09-15 14:54 | Emergency (ER) | payer MEDICARE, OTHER ==
[2023-09-15] MEDS ORDERED: Ibuprofen 200 MG TAB ONE (16:01)
[2023-09-15 16:30] LABS: #Eosinphils 0.2 thou/uL (0.0-0.7); #Monocytes 0.8 thou/uL (0.11-0.59); #Neutrophils 5.9 thou/uL (1.40-6.50); %Basophils 0.2 % (0.0-1.0); %Monocytes 9.5 % (0.0-10.0); %Neutrophils 67.8 % (42.0-75.0); Hematocrit 34.6 % (36.0-47.0); Hemoglobin 10.9 g/dL (12.0-16.0); Mean Corpuscular HGB CONC 31.5 g/dL (32.0-36.0); Mean Corpuscular Hemoglobin 31.1 pg (27.0-31.0); Mean Corpuscular Volume 98.6 fl (78.0-98.0); Mean Platelet Volume 11.6 fL (7.4-10.4); Platelet Count 249 10x3/uL (130-400); RBC Distribution Width 14.7 % (11.5-14.5); Red Blood Cell (RBC) Count 3.51 mill/uL (4.20-5.40); White Blood Cell (WBC) Count 8.6 10x3/uL (4.8-10.8)
[2023-09-15 16:51] LABS: ALT (SGPT) 10 U/L (8-55); AST (SGOT) 15 U/L (5-34); Albumin 4.3 g/dL (3.4-4.8); Alkaline Phosphatase 82 U/L (40-110); Anion Gap 12 mmol/L (10-20); BUN (Urea Nitrogen) 24 mg/dL (9.8-20.1); Bilirubin, Total 0.7 mg/dL (0.2-1.2); Calc. Creatinine Clearance 0 mL/min (70-130); Calcium 9.2 mg/dL (7.8-10.44); Carbon Dioxide 28 mmol/L (23-31); Chloride 108 mmol/L (98-107); Estimated GFR 83; Globulin 2.4 g/dL (2.4-3.5); Glucose 101 mg/dL (83-110); Potassium 3.8 mmol/L (3.5-5.1); Protein, Total 6.7 g/dL (5.8-8.1); Sodium 144 mmol/L (136-145)
[2023-09-15 17:05] LABS: Troponin I Less than 0.010 ng/mL (< 0.028)
[2023-09-15 17:13] LABS: Bilirubin Negative (Negative); Blood, Urine Negative (Negative); Glucose, Urine (Dipstick) Negative (Negative); Ketone, Urine Negative (Negative); Leukocyte Negative (Negative); Nitrite Positive (Negative); Protein, Urine (Dipstick) Negative (Neg-Trace); Specific Gravity, Urine 1.025 (1.005-1.030); Urobilinogen 0.2 mg/dL (Less than 2)
[2023-09-15 17:26] LABS: Bacteria/HPF 4+ HPF (None Seen); CAUTI Indications for Culture Alt mental st,lethar; Clarity Slightly Cloudy (Clear); RBC/HPF 0-3 HPF (0-3); Squamous Epithelial 0-3 HPF (0-3)
[2023-09-15 17:27] LABS: Urine Culture Reflex Yes Yes
== END 2023-09-15 19:00 | disposition home or self-care (01) ==
LOC: ERS 14:54
DX: N39.0 Urinary tract infection, site not specified (principal)
CPT/HCPCS: 36415; 70450; 71045; 72100; 80053; 81001; 84484; 85025; 87077; 87086; 87186; 93005; 94760

== ENCOUNTER 2024-10-27 10:12 | Emergency (ER) | payer MEDICARE, OTHER ==
[2024-10-27] MEDS ORDERED: Ketorolac Tromethamine 30 MG (1 mL) VIAL ONE (11:47)
== END 2024-10-27 12:15 | disposition home or self-care (01) ==
LOC: ERS 10:12
DX: M54.50 Low back pain, unspecified (principal); M25.552 Pain in left hip; I10 Essential (primary) hypertension
CPT/HCPCS: 72131; 73030; 73502; J1885; 96372

== ENCOUNTER 2025-07-31 15:06 | Outpatient (CLI) | payer MEDICARE, OTHER | END 2025-07-31 15:07 | disposition home or self-care (01) | LOC: BICMAMMO 15:06 | PROVIDERS: ATTEND Internal Medicine Rheumatology | DX: M81.0 Age-related osteoporosis without current pathological fracture (principal) | CPT/HCPCS: 77080 ==